=== PATIENT | female | born 1935 | race Caucasian/White ===

== ENCOUNTER 2016-11-24 17:12 | Emergency (ER) | payer MEDICARE ==
[~2016-11-24 17:12] MED LIST: ANTIVERT25 M1 PO; ASACOL400 MG; ASPIRIN325 M3 PO; ASPIRIN325 MG; ASPIRIN325 MG PO; CIPRO100 MG PO; CIPRO500 MG PO; CLEOCIN150 MG/CAP PO; DIOVAN; DIOVAN160 M PO; DIOVAN160 M1 PO; DIOVAN160 MG; DOXYCYCLINE HY100 MG; H PO; ICAPS AREDS FO1 EACH PO; IMDUR30 MG; IMODIUM2 MG PO; ISOSORBIDE; K-TAB10 MEQ; LASIX; LASIX40 MG; LASIX40 MG PO; LEVAQUIN750 MG PO; LOMOTIL TABLET1 TAB; LOPERAMIDE; LOPERAMIDE2 M2 PO; LOPRESSOR25 MG/TA1 PO; MACROBID 100 M100 MG PO; MECLIZINE HCL25 MG PO; METOPROLOL TART25 MG PO; MOTRIN600 MG; MULTIVITAMIN; MULTIVITAMIN1 TAB; MULTIVITAMIN1 TAB PO; NIASPAN; NIASPAN1000 MG; NIASPAN1000 MG PO; OSTEO BI-FLEX1 EACH PO; OSTEO BIFLEX; PAXIL; PAXIL20 M1 PO; PAXIL20 MG; PAXIL20 MG PO; POTASSIUM; POTASSIUM CHLO10 MEQ PO; POTASSIUM CHLORIDE; PREDNISONE10 MG; PREDNISONE2.5 MG; PREDNISONE2.5 MG PO; PREDNISONE20 MG PO; PREDNISONE5 M1 PO; TOPROL-XL25 MG/TA5 PO; TRAMADOL HCL50 MG; TRICOR; TRICOR145 M1; TRICOR145 M2 PO; TRICOR145 MG PO; TRICOR160 MG; TYLENOL325 MG PO; ULTRAM50 MG PO; VITAMIN C; VITAMIN C500 M1 PO; VITAMIN C500 M3 PO; XYZAL5 MG
[2016-11-24] MEDS ORDERED: VITAMIN D31000 UNI3 PO (18:46)
[2016-11-24] MEDS ORDERED: PROBIOTIC1 EA10 PO (18:47)
[2016-11-24] MEDS ORDERED: MECLIZINE HCL25 M3 PO (18:49)
[2016-11-24] MEDS ORDERED: IBUPROFEN200 M3 PO (18:50)
[2016-11-24] MEDS ORDERED: BENADRYL25 M3 PO (18:50)
== END 2016-11-24 21:34 ==
LOC: EDMED 17:12
DX: M25.561 Pain in right knee (principal); I10 Essential (primary) hypertension; E07.9 Disorder of thyroid, unspecified; E66.9 Obesity, unspecified; Z88.2 Allergy status to sulfonamides; Z87.2 Personal history of diseases of the skin and subcutaneous tissue; Z79.899 Other long term (current) drug therapy; M79.661 Pain in right lower leg

== ENCOUNTER 2016-12-09 10:02 | Emergency (ER) | payer MEDICARE ==
[~2016-12-09 10:02] MED LIST changes: +BENADRYL25 M3 PO; +IBUPROFEN200 M3 PO; +MECLIZINE HCL25 M3 PO; +PROBIOTIC1 EA10 PO; +VITAMIN D31000 UNI3 PO
[2016-12-09] MEDS ORDERED: ICAPS PLUS1 EACH PO (10:42)
[2016-12-09 11:20] LABS: URINE BILIRUBIN NEGATIVE (NEG); URINE BLOOD LARGE (NEG); URINE GLUCOSE (UA) NEGATIVE (NEG); URINE KETONE NEGATIVE (NEG); URINE LEUKOCYTE ESTERASE POSITIVE (NEG); URINE NITRITE POSITIVE (NEG); URINE PROTEIN MODERATE (NEG); URINE SPECIFIC GRAVITY 1.015 (1.003-1.030)
[2016-12-09 11:23] LABS: URINE APPEARANCE HAZY; URINE COLOR YELLOW
[2016-12-09 11:49] LABS: URINE BACTERIA 4+
[2016-12-09 11:50] LABS: URINE RBC 15-20 /[HPF] (0-5); URINE WBC 50-60 /[HPF] (0-5)
[2016-12-09] MEDS ORDERED: CIPRO500 M2 PO (12:18)
== END 2016-12-09 12:33 ==
LOC: EDMED 10:02
PROVIDERS: Physician Assistant
DX: N39.0 Urinary tract infection, site not specified (principal); I10 Essential (primary) hypertension; I25.10 Atherosclerotic heart disease of native coronary artery without angina pectoris; Z88.2 Allergy status to sulfonamides; Z90.49 Acquired absence of other specified parts of digestive tract; Z90.89 Acquired absence of other organs; Z79.899 Other long term (current) drug therapy

== ENCOUNTER 2016-12-14 13:23 | Inpatient (IN) | payer MEDICARE ==
[~2016-12-14 13:23] MED LIST changes: +CIPRO500 M2 PO; +ICAPS PLUS1 EACH PO
[2016-12-14] MEDS ORDERED: CIPRO500 M2 PO (14:14)
[2016-12-14] MEDS ORDERED: PREDNISONE10 M1 PO (14:15)
[2016-12-14 15:18] LABS: BASO % 0.1 % (0-2); EOS % 0.9 % (0-7); EOSINOPHIL ABSOLUTE COUNT 0.1 tho/cmm (0.0-0.7); HGB-HEMOGLOBIN 10.9 gm/dl (12.0-15.5); IMMATURE GRANULOCYTES ABSOLUTE 0.08 tho/cmm (0-0.03); IMMATURE GRANULOCYTES PERCENT 0.9 % (0-0.3); LYMPH % 2.7 % (20-45); LYMPH ABSOLUTE COUNT 0.3 tho/cmm (0.8-4.5); MCH (MEAN CORPUSCULAR HGB) 30.9 pg (28.0-32.0); MCHC MEAN CORPUSCULAR HGB CONC 34.1 % (32.0-36.0); MCV (MEAN CELL VOLUME) 90.7 fl (82.0-96.0); MEAN PLATELET VOLUME 9.2 cmc (9.4-12.4); MONO % 2.1 % (0-12); MONOCYTE ABSOLUTE COUNT 0.2 tho/cmm (0.0-1.2); NEUTROPHIL ABSOLUTE COUNT 8.8 tho/cmm (1.6-8.0); NEUTROPHIL-AUTOMATED 8.8 tho/cmm (1.6-8.0); NEUTROPHILS % 93.3 % (40-80); PLATELET COUNT 280 tho/cmm (150-450); RED BLOOD COUNT 3.53 mil/cmm (4.00-5.20); RED CELL DISTRIBUTION WIDTH 13.2 % (12.4-16.4); WHITE BLOOD COUNT 9.4 tho/cmm (4.0-10.0)
[2016-12-14 15:30] LABS: ANION GAP 15 mmol/L (0-20); BLOOD UREA NITROGEN 25 mg/dl (6-24); CALCIUM 8.5 mg/dl (8.5-10.5); CARBON DIOXIDE-VENOUS 23 mmol/L (22-32); CHLORIDE 109 mmol/l (96-110); GLUCOSE 128 mg/dL (70-110); POTASSIUM 3.9 mmol/L (3.7-5.1); SODIUM 143 mmol/L (135-145); eGFR VALUE FOR BLACK 55 mL/Min
[2016-12-14 15:59] LABS: URINE BILIRUBIN NEGATIVE (NEG); URINE BLOOD NEGATIVE (NEG); URINE GLUCOSE (UA) NEGATIVE (NEG); URINE KETONE NEGATIVE (NEG); URINE LEUKOCYTE ESTERASE NEGATIVE (NEG); URINE NITRITE NEGATIVE (NEG); URINE PROTEIN NEGATIVE (NEG)
[2016-12-14 16:09] LABS: URINE APPEARANCE CLEAR; URINE COLOR PALE YELLOW
[2016-12-14] MEDS ORDERED: LOPID600 M1 PO (16:39)
[2016-12-14] MEDS ORDERED: TYLENOL EXTRA500 M1 PO (16:40)
[2016-12-14] MEDS ORDERED: ALEVE220 M3 PO (16:40)
[2016-12-16 06:03] LABS: BASO % 0.3 % (0-2); EOS % 1.4 % (0-7); EOSINOPHIL ABSOLUTE COUNT 0.1 tho/cmm (0.0-0.7); HCT-HEMATOCRIT 29.6 % (34.0-49.0); HGB-HEMOGLOBIN 9.9 gm/dl (12.0-15.5); IMMATURE GRANULOCYTES ABSOLUTE 0.11 tho/cmm (0-0.03); IMMATURE GRANULOCYTES PERCENT 1.6 % (0-0.3); LYMPH % 5.4 % (20-45); LYMPH ABSOLUTE COUNT 0.4 tho/cmm (0.8-4.5); MCH (MEAN CORPUSCULAR HGB) 30.7 pg (28.0-32.0); MCHC MEAN CORPUSCULAR HGB CONC 33.4 % (32.0-36.0); MCV (MEAN CELL VOLUME) 91.9 fl (82.0-96.0); MEAN PLATELET VOLUME 8.9 cmc (9.4-12.4); MONO % 7.2 % (0-12); MONOCYTE ABSOLUTE COUNT 0.5 tho/cmm (0.0-1.2); NEUTROPHIL ABSOLUTE COUNT 5.8 tho/cmm (1.6-8.0); NEUTROPHIL-AUTOMATED 5.8 tho/cmm (1.6-8.0); NEUTROPHILS % 84.1 % (40-80); PLATELET COUNT 272 tho/cmm (150-450); RED BLOOD COUNT 3.22 mil/cmm (4.00-5.20); RED CELL DISTRIBUTION WIDTH 13.1 % (12.4-16.4); WHITE BLOOD COUNT 6.9 tho/cmm (4.0-10.0)
[2016-12-16 06:10] LABS: PROTHROMBIN TIME 11.1 SECONDS (9.0-13.6)
[2016-12-16 06:17] LABS: ANION GAP 14 mmol/L (0-20); BLOOD UREA NITROGEN 20 mg/dl (6-24); CALCIUM 7.8 mg/dl (8.5-10.5); CARBON DIOXIDE-VENOUS 25 mmol/L (22-32); CHLORIDE 109 mmol/l (96-110); CREATININE 0.89 mg/dl (0.50-1.10); GLUCOSE 89 mg/dL (70-110); POTASSIUM 3.5 mmol/L (3.7-5.1); SODIUM 144 mmol/L (135-145); eGFR VALUE FOR BLACK 71 mL/Min
[2016-12-18 01:47] LABS: URINE BILIRUBIN NEGATIVE (NEG); URINE BLOOD NEGATIVE (NEG); URINE GLUCOSE (UA) SMALL (NEG); URINE KETONE NEGATIVE (NEG); URINE LEUKOCYTE ESTERASE NEGATIVE (NEG); URINE NITRITE NEGATIVE (NEG); URINE PH 6.5 (5.0-8.0); URINE PROTEIN NEGATIVE (NEG)
[2016-12-18 01:54] LABS: URINE APPEARANCE CLEAR; URINE COLOR PALE YELLOW
[2016-12-18 06:19] LABS: BASO % 0.2 % (0-2); EOS % 1.4 % (0-7); EOSINOPHIL ABSOLUTE COUNT 0.1 tho/cmm (0.0-0.7); HCT-HEMATOCRIT 34.5 % (34.0-49.0); HGB-HEMOGLOBIN 11.7 gm/dl (12.0-15.5); IMMATURE GRANULOCYTES ABSOLUTE 0.17 tho/cmm (0-0.03); LYMPH % 2.3 % (20-45); LYMPH ABSOLUTE COUNT 0.2 tho/cmm (0.8-4.5); MCH (MEAN CORPUSCULAR HGB) 30.7 pg (28.0-32.0); MCHC MEAN CORPUSCULAR HGB CONC 33.9 % (32.0-36.0); MCV (MEAN CELL VOLUME) 90.6 fl (82.0-96.0); MEAN PLATELET VOLUME 8.8 cmc (9.4-12.4); MONO % 8.6 % (0-12); MONOCYTE ABSOLUTE COUNT 0.7 tho/cmm (0.0-1.2); NEUTROPHIL ABSOLUTE COUNT 7.4 tho/cmm (1.6-8.0); NEUTROPHIL-AUTOMATED 7.4 tho/cmm (1.6-8.0); NEUTROPHILS % 85.5 % (40-80); PLATELET COUNT 329 tho/cmm (150-450); RED BLOOD COUNT 3.81 mil/cmm (4.00-5.20); RED CELL DISTRIBUTION WIDTH 12.9 % (12.4-16.4); WHITE BLOOD COUNT 8.6 tho/cmm (4.0-10.0)
[2016-12-18 06:32] LABS: ANION GAP 13 mmol/L (0-20); BLOOD UREA NITROGEN 19 mg/dl (6-24); CALCIUM 8.4 mg/dl (8.5-10.5); CARBON DIOXIDE-VENOUS 28 mmol/L (22-32); CHLORIDE 107 mmol/l (96-110); CREATININE 0.79 mg/dl (0.50-1.10); GLUCOSE 88 mg/dL (70-110); POTASSIUM 3.3 mmol/L (3.7-5.1); SODIUM 145 mmol/L (135-145); eGFR VALUE FOR BLACK 83 mL/Min
[2016-12-19 05:49] LABS: ANION GAP 13 mmol/L (0-20); BLOOD UREA NITROGEN 21 mg/dl (6-24); CARBON DIOXIDE-VENOUS 26 mmol/L (22-32); CHLORIDE 109 mmol/l (96-110); CREATININE 0.87 mg/dl (0.50-1.10); GLUCOSE 94 mg/dL (70-110); POTASSIUM 3.6 mmol/L (3.7-5.1); SODIUM 144 mmol/L (135-145); eGFR VALUE FOR BLACK 73 mL/Min
== END 2016-12-19 13:29 | DRG 517 ==
LOC: EDMED 13:23 → 5EA 20:56 → 5EB 12-16 18:05
PROVIDERS: Internal Medicine; Nurse Practitioner Family; Radiology Diagnostic Radiology; Registered Nurse; ADMIT Hospitalist
PROC: 0QU03JZ Supplement Lumbar Vertebra with Synthetic Substitute, Percutaneous Approach (ICD-10-PCS; principal; 2016-12-18)
DX: M48.56XA Collapsed vertebra, not elsewhere classified, lumbar region, initial encounter for fracture (principal); D64.9 Anemia, unspecified; I10 Essential (primary) hypertension; E87.6 Hypokalemia; M46.1 Sacroiliitis, not elsewhere classified; K58.9 Irritable bowel syndrome, unspecified
CPT/HCPCS: A9503; G0378; G8978-GP-CJ; G8979-GP-CJ; G8987-GO-CJ; G8988-GO-CI; G8989-GO-CJ; J0360; J0690; J2250; J2270; J2405; J3010; J7512